=== PATIENT | male | born 1965 | race Hispanic/Latino ===

== ENCOUNTER 2019-10-29 13:06 | Emergency (ER) | payer BC ==
[2019-10-29] MEDS ORDERED: FAMOTIDINE 20MG TAB 20 MG TAB ONE (14:11)
[2019-10-29] MEDS ORDERED: ACETAMINOPHEN 325 MG TAB ONE (14:11)
== END 2019-10-29 16:19 | disposition home or self-care (01) ==
LOC: EDH 13:06
DX: R07.89 Other chest pain (principal); R50.9 Fever, unspecified; R05 Cough; E11.9 Type 2 diabetes mellitus without complications; Z20.828 Contact with and (suspected) exposure to other viral communicable diseases
CPT/HCPCS: 36415; 71045; 80053; 82550; 83690; 84484; 85025; 87804 ×2; 87880; 93005; 99285; U0003